=== PATIENT | female | born 1955 | race Caucasian/White ===

== ENCOUNTER 2017-10-08 11:13 | Emergency (ER) | payer OTHER ==
[~2017-10-08] VITALS: Ht 160 cm; Wt 49.9 kg
[~2017-10-08 11:13] MED LIST: ACET325; CIPR500 PO; DOXY100 PO; HYDACE5 PO; HYDR1TAB94 PO; IBUP800; IBUP800 PO; MULVITMIND PO; NAPR220; NEOPOLHYDS AS; OXYACE5T PO; RXALBOI INH; RXCODGUASY PO; TRAM50; VITAMENS
[2017-10-08] MEDS ORDERED: OLAN5 PO (16:54)
== END 2017-10-08 11:49 | disposition left against medical advice (07) ==
LOC: ER 11:13
DX: Z53.21 Procedure and treatment not carried out due to patient leaving prior to being seen by health care provider (principal)
CPT/HCPCS: 99283

== ENCOUNTER 2017-10-08 12:11 | Emergency (ER) | payer OTHER ==
[~2017-10-08] VITALS: Ht 162.6 cm; Wt 54.4 kg
[2017-10-08 12:54] LABS: BASOPHILS ABSOLUTE AUTO 0.04 K/mm3 (0.00-0.23); BASOPHILS PERCENT AUTO 1 % (0-2); EOSINOPHILS ABSOLUTE AUTO 0.11 K/mm3 (0.00-0.68); EOSINOPHILS PERCENT AUTO 2 % (0-6); Hematocrit 43.3 % (33.0-51.0); Hemoglobin 14.5 g/dL (11.5-16.0); IMMATURE GRAN ABSOLUTE AUTO 0.01 K/mm3 (0.00-0.10); IMMATURE GRAN PERCENT AUTO 0 % (0-1); LYMPHOCYTES ABSOLUTE AUTO 2.05 K/mm3 (0.84-5.20); LYMPHOCYTES PERCENT AUTO 33 % (21-46); MONOCYTES ABSOLUTE AUTO 0.52 K/mm3 (0.16-1.47); MONOCYTES PERCENT AUTO 8 % (4-13); Mean Corpuscular HGB 30.5 pg (26.0-34.0); Mean Corpuscular HGB Conc 33.5 g/dL (31.5-36.5); Mean Corpuscular Volume 91 fL (80-100); Mean Platelet Volume 8.7 fL (9.1-12.4); NEUTROPHILS ABSOLUTE AUTO 3.58 K/mm3 (1.96-9.15); NEUTROPHILS PERCENT AUTO 57 % (41-73); Platelet Count 444 K/mm3 (150-400); RDW Coefficient Variation 12.4 % (11.7-14.2); RDW Standard Deviation 41.1 fL (35.1-46.3); Red Blood Cell Count 4.75 M/mm3 (3.80-5.20); White Blood Cell Count 6.31 K/mm3 (4.00-11.30)
[2017-10-08 13:18] LABS: Alanine Aminotransfer (ALT/SGP 35 U/L (12-78); Albumin, Blood 3.7 g/dL (3.4-5.0); Albumin/Globulin Ratio 0.8 (0.8-1.8); Alk Phos 99 U/L (50-136); Anion Gap 7 mmol/L (6-16); Aspartate Aminotrans (AST/SGOT 23 U/L (12-37); Bilirubin, Total 0.3 mg/dL (0.1-1.0); Blood Urea Nitrogen 12 mg/dL (8-24); CO2, Blood 30 mmol/L (21-32); Calcium, Blood 9.2 mg/dL (8.5-10.1); Chloride, Blood 102 mmol/L (98-108); Creatinine, Blood 0.71 mg/dL (0.40-1.00); Ethanol (Alcohol), Blood, Med <3 mg/dL; Globulin, Blood 4.5 g/dL (2.2-4.0); Glomerular Filtration Rate >60 (60-); Glucose, Blood 106 mg/dL (70-99); Potassium, Blood 4.2 mmol/L (3.5-5.5); Salicylate 4.7 mg/dL (2.8-20.0); Sodium, Blood 139 mmol/L (136-145); Thyroxine (T4) 16.2 ug/dL (4.8-13.9); Total Protein, Blood 8.2 g/dL (6.4-8.2)
[2017-10-08 13:20] LABS: Thyroid Stimulating Hormone 0.403 uIU/mL (0.360-4.800)
[2017-10-08 13:21] LABS: Acetaminophen, Random <2.0 ug/mL (10.0-30.0)
[2017-10-08] MEDS ORDERED: OLAN5 PO (16:54)
== END 2017-10-08 17:43 | disposition home or self-care (01) ==
LOC: ER 12:11
PROVIDERS: Emergency Medicine
DX: F41.9 Anxiety disorder, unspecified (principal); R94.6 Abnormal results of thyroid function studies; R10.9 Unspecified abdominal pain; F17.200 Nicotine dependence, unspecified, uncomplicated; Z88.0 Allergy status to penicillin; Z88.5 Allergy status to narcotic agent; Z88.6 Allergy status to analgesic agent
CPT/HCPCS: 36415; 80053; 84436; 84443; 84481; 85025; 99284; G0480; Q3014

== ENCOUNTER → 2018-10-31 | Outpatient (CLI) | payer OTHER ==
[~2018-10-31] MED LIST changes: +OLAN5 PO
== END | disposition home or self-care (01) ==
LOC: LAB 16:05 → LAB SHORT 16:05
DX: Z51.81 Encounter for therapeutic drug level monitoring (principal); Z79.899 Other long term (current) drug therapy
CPT/HCPCS: G0480

== ENCOUNTER → 2019-11-12 | Outpatient (CLI) | payer OTHER ==
[2019-11-14 15:07] LABS: HPV 16 Negative (Negative); HPV 18 Negative (Negative); HPV OTHER HR TYPES Positive (Negative)
== END | disposition home or self-care (01) ==
LOC: LAB 07:43 → LAB SHORT 07:43
PROVIDERS: Obstetrics & Gynecology
DX: Z01.419 Encounter for gynecological examination (general) (routine) without abnormal findings (principal)
CPT/HCPCS: 87624; 87625; G0123

== ENCOUNTER 2020-05-11 05:18 | Emergency (ER) | payer OTHER ==
[~2020-05-11] VITALS: Ht 162.6 cm; Wt 52.2 kg
[2020-05-11] MEDS ORDERED: ZOLP5 PO (05:37)
[2020-05-11] MEDS ORDERED: Atarax10 MG PO (05:37)
[2020-05-11] MEDS ORDERED: VENLAFAXINE HC225 MG PO (05:38)
[2020-05-11] MEDS ORDERED: Percocet 5-3251 EACH PO (08:15)
== END 2020-05-11 08:22 | disposition home or self-care (01) ==
LOC: ER 05:18
DX: S66.911A Strain of unspecified muscle, fascia and tendon at wrist and hand level, right hand, initial encounter (principal); F17.200 Nicotine dependence, unspecified, uncomplicated; Z88.0 Allergy status to penicillin; Z88.5 Allergy status to narcotic agent; Z88.6 Allergy status to analgesic agent; Z79.899 Other long term (current) drug therapy; X50.1XXA Overexertion from prolonged static or awkward postures, initial encounter
CPT/HCPCS: 73110; 99283-25; A9270-GY

== ENCOUNTER 2020-06-19 10:16 | Emergency (ER) | payer OTHER ==
[~2020-06-19] VITALS: Ht 162.6 cm; Wt 47.6 kg
[~2020-06-19 10:16] MED LIST changes: +Atarax10 MG PO; +Percocet 5-3251 EACH PO; +VENLAFAXINE HC225 MG PO; +ZOLP5 PO
[2020-06-19] MEDS ORDERED: FLUO10 PO (12:37)
[2020-06-19] MEDS ORDERED: OLANZAPINE5 M1 PO (12:39)
[2020-06-19] MEDS ORDERED: ZOLPIDEM TARTRA10 MG PO (12:40)
[2020-06-19] MEDS ORDERED: OLAN5 PO (12:40)
[2020-06-19] MEDS ORDERED: Ventolin/Prove6.7 GM INH (12:41)
[2020-06-19] MEDS ORDERED: KEFLEX500 MG PO (14:40)
== END 2020-06-19 14:43 | disposition home or self-care (01) ==
LOC: ER 10:16
DX: S01.81XA Laceration without foreign body of other part of head, initial encounter (principal); R11.0 Nausea; M54.2 Cervicalgia; M54.9 Dorsalgia, unspecified; F17.200 Nicotine dependence, unspecified, uncomplicated; Z88.0 Allergy status to penicillin; Z88.5 Allergy status to narcotic agent; Z88.6 Allergy status to analgesic agent; Z79.899 Other long term (current) drug therapy; W20.8XXA Other cause of strike by thrown, projected or falling object, initial encounter
CPT/HCPCS: 12002; 99283-25; A9270; A9270-GY